=== PATIENT | female | born 1975 | race Caucasian/White ===

== ENCOUNTER 2025-02-21 10:36 | Emergency (ER) | payer OTHER ==
[~2025-02-21] VITALS: Ht 152.4 cm; Wt 57.2 kg
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
[2025-02-21 12:24] VITALS: BP 126/82; PULSE 80; RESP 16; TEMP 97.7; O2SAT 98
[2025-02-21] MEDS: ACETAMINOPHEN 500 MG TAB or CAP PO ONE (12:24)
[2025-02-21] MEDS ORDERED: ACET-1080 PO (12:43)
[2025-02-21] MEDS ORDERED: METH-1181 PO (12:43)
== END 2025-02-21 13:02 | disposition home or self-care (01) ==
LOC: ER 10:36
DX: S16.1XXA Strain of muscle, fascia and tendon at neck level, initial encounter (principal); S00.83XA Contusion of other part of head, initial encounter; S00.33XA Contusion of nose, initial encounter; V59.88XA Occupant (driver) (passenger) of pick-up truck or van injured in other specified transport accidents, initial encounter; Y93.89 Activity, other specified; Y92.89 Other specified places as the place of occurrence of the external cause; Y99.8 Other external cause status
CPT/HCPCS: 70160; 70450; 72040